=== PATIENT | female | born 1960 | race Caucasian/White ===

== ENCOUNTER 2016-12-11 01:05 | Emergency (ER) | payer OTHER, SELFPAY ==
[~2016-12-11 01:05] MED LIST: BENA25CA2 PO; DYAZ37.5 PO; NICO2GUM62 PO; PRED1SUS OP; RISP0.5T21 PO; RISP1TAB42 PO; RISP3TAB20 PO; RISP3TAB3 PO; TOBRSUS41 OP; TRAZ25TA PO
[2016-12-11] MEDS ORDERED: BENA25CA4 PO (01:41)
[2016-12-11 02:12] LABS: MEAN CORPUSCULAR HEMOGLOBIN 31.2 pg (27.0-33.0); MEAN CORPUSCULAR HGB CONC 33.9 g/dl (32.0-36.5); MEAN CORPUSCULAR VOLUME 91.9 fl (80.0-96.0); RED CELL DISTRIBUTION WIDTH 12.3 % (11.5-14.5)
[2016-12-11 02:38] LABS: METHADONE URINE NEGATIVE (NEGATIVE)
[2016-12-11 02:43] LABS: ALBUMIN 4.2 GM/DL (3.2-5.2); ALBUMIN/GLOBULIN RATIO 1.31 (1.00-1.93); ALKALINE PHOSPHATASE 63 U/L (45-117); ALT/SGPT 22 U/L (12-78); ANION GAP 10 MEQ/L (8-16); AST/SGOT 21 U/L (15-37); BILIRUBIN,DIRECT 0.1 MG/DL (0.0-0.2); BILIRUBIN,TOTAL 0.3 MG/DL (0.2-1.0); BLOOD UREA NITROGEN 16 MG/DL (7-18); CALCIUM LEVEL 9.1 MG/DL (8.5-10.1); CARBON DIOXIDE LEVEL 26 MEQ/L (21-32); CHLORIDE LEVEL 103 MEQ/L (98-107); CREATININE FOR GFR 0.85 MG/DL (0.55-1.02); GLOMERULAR FILTRATION RATE > 60.0 (>51); GLUCOSE, FASTING 112 MG/DL (70-105); POTASSIUM SERUM 4.3 MEQ/L (3.5-5.1); SODIUM LEVEL 139 MEQ/L (136-145); TOTAL PROTEIN 7.4 GM/DL (6.4-8.2)
[2016-12-11 02:58] VITALS: BP 145/98
== END 2016-12-11 03:02 | disposition home or self-care (01) ==
LOC: M ED 01:05
DX: Z04.6 Encounter for general psychiatric examination, requested by authority (principal); F43.0 Acute stress reaction; I10 Essential (primary) hypertension; Z87.891 Personal history of nicotine dependence; Z79.899 Other long term (current) drug therapy; Z88.0 Allergy status to penicillin; Z88.8 Allergy status to other drugs, medicaments and biological substances
CPT/HCPCS: 36415; 80048; 80076; 80307; 84443; 85027; 99284; G0480

== ENCOUNTER 2017-04-04 22:07 | Inpatient (IN) | payer OTHER ==
[~2017-04-04] VITALS: Ht 162.6 cm; Wt 64.0 kg
[~2017-04-04 22:07] MED LIST changes: +BENA25CA4 PO
[2017-04-04] MEDS ORDERED: LORazepam 2 MG/ML VIAL (J2060) IM ONE (22:30)
[2017-04-04] MEDS ORDERED: HALOPERIDOL 5 MG/ML VIAL (J1630) IM ONE (22:30)
[2017-04-04] MEDS ORDERED: diphenhydrAMINE INJ 50MG/ML VIAL (J1200) IM ONE (22:30)
[2017-04-04 23:47] LABS: MEAN CORPUSCULAR HEMOGLOBIN 30.3 pg (27.0-33.0); MEAN CORPUSCULAR HGB CONC 33.1 g/dl (32.0-36.5); MEAN CORPUSCULAR VOLUME 91.5 fl (80.0-96.0); PLATELET COUNT, AUTOMATED 187 10^3/uL (150-450); RED CELL DISTRIBUTION WIDTH 12.9 % (11.5-14.5); WHITE BLOOD COUNT 12.2 10^3/uL (4.0-10.0)
[2017-04-05] VITALS (7 sets, daily range): BP systolic 117–150; BP diastolic 56–88
[2017-04-05 00:12] LABS: METHADONE URINE NEGATIVE (NEGATIVE)
[2017-04-05 00:27] LABS: ALBUMIN 3.7 GM/DL (3.2-5.2); ALBUMIN/GLOBULIN RATIO 1.23 (1.00-1.93); ALKALINE PHOSPHATASE 54 U/L (45-117); ALT/SGPT 25 U/L (12-78); ANION GAP 10 MEQ/L (8-16); AST/SGOT 16 U/L (7-37); BILIRUBIN,DIRECT < 0.1 MG/DL (0.0-0.2); BILIRUBIN,TOTAL 0.2 MG/DL (0.2-1.0); BLOOD UREA NITROGEN 14 MG/DL (7-18); CALCIUM LEVEL 8.8 MG/DL (8.5-10.1); CARBON DIOXIDE LEVEL 26 MEQ/L (21-32); CHLORIDE LEVEL 108 MEQ/L (98-107); CREATININE FOR GFR 1.01 MG/DL (0.55-1.02); GLOMERULAR FILTRATION RATE > 60.0 (>51); GLUCOSE, FASTING 95 MG/DL (70-105); POTASSIUM SERUM 3.6 MEQ/L (3.5-5.1); SODIUM LEVEL 144 MEQ/L (136-145); TOTAL PROTEIN 6.7 GM/DL (6.4-8.2)
[2017-04-05] MEDS ORDERED: PATIENT COMMENT (02:11)
[2017-04-05] MEDS ORDERED: ACETAMINOPHEN TAB 650MG DOSE (2X325MG) PO PRN (07:45)
[2017-04-05] MEDS ORDERED: OLANZapine 10 MG TAB PO PRN (07:45)
[2017-04-05] MEDS ORDERED: traZODone 50 MG TAB PO PRN (07:45)
[2017-04-05] MEDS ORDERED: MOM 30ML SUSPENSION UDC PO PRN (07:45)
[2017-04-05] MEDS ORDERED: MAALOX 30 ML SUSP *UDC PO PRN (07:45)
[2017-04-05] MEDS: NICOTINE POLACRILEX 2 MG GUM PO PRN ×2 (08:50→17:22)
--- NOTE | 2017-04-05 09:30 | HPEPDOC ---
[facility] Medical History & Physical Date of Admission Apr 04, 2017 History and Physical PCP: Dr David MOORE Oncologist: Dr Michael Sanchez [facility] ATTENDING: Dr. Bernard Nielson HPI: 55yoF admitted to [facility] for Unspecified depressive disorder, being medically examined today. Pt received physical and chemical restraint at 22:35 04/04/17 after becoming aggressive and physically threatening with staff. Pt is not able to provide history or participate with exam at this time. Per records Pt recently non compliant with medications. History is taken from the chart. PMHx: Schizophrenia/Schizoaffective disorder Psychosis Hypertension Breast cancer- status post radiation treatment, Following with Dr Sanchez OncologyKonrad MOORE PSHX: Left lumpectomy 04/19 Appendectomy Tonsillectomy Left breast cyst-benign SOCHX: Resides in: Grew up in [place], from [place]. Lives on [address] [facility] in [facility] [facility] in [place]. Marital Status: Kids: None Employment: Homemaker Tobacco use: Denies ETOH: One to 2 times per week 3 drinks Illicit Drugs: Marijuana "occasionally" IV Drug Use: Denies Tattoos done unprofessionally: Denies FAMHX: Mother: Alive, living in [facility], not in contact Father: Alive, living in [place], not in contact Siblings: Alive, half-brother and half-sister, healthy Children: None Unexpected deaths due to medical reasons: None. ROS: Pt is postmenopausal. Pt is not able to provide any additional history at this time. PE: Pt is not able to particiapte with exam at this time. EKG: Pending. A&P: 55yoF admitted to [facility] for Unspecified psychosis 1. Psych. Plan per Psychiatry. Obtain baseline EKG to assure the safety of psychiatric medications as they can prolong the QT interval. 2. H/O Breast Cancer s/p surgery and Radiation treatment- Following with Dr Sharon MOORE. 3. Leukocytosis. Patient is afebrile. Possibly stress response. Recheck CBC in a.m. 4. H/O Hypertension. No medications as an outpatient. BP 117-135 systolic. Monitor. 5. Substance use. Per psychiatry. 6. Follow up with PCP at discharge. 7. Staff member Arben assisted in attempting H&P. Vital Signs Vital Signs Date Time Temp Pulse Resp B/P (MAP) Pulse Ox O2 Delivery O2 Flow Rate FiO2 04/05/17 06:37 97.8 65 20 135/80 (98) 04/05/17 04:08 96 Room Air Laboratory Data Labs 24H Laboratory Tests 2 04/04/17 23:36: Nucleated Red Blood Cells % (auto) 0.0, Anion Gap 10, Glomerular Filtration Rate > 60.0, Calcium Level 8.8, Aspartate Amino Transf (AST/SGOT) 16, Alanine Aminotransferase (ALT/SGPT) 25, Alkaline Phosphatase 54, Total Bilirubin 0.2, Direct Bilirubin < 0.1, Total Protein 6.7, Albumin 3.7, Albumin/Globulin Ratio 1.23, Thyroid Stimulating Hormone (TSH) 1.770, Salicylates Level 3.4L, Acetaminophen Level < 2.0L, Ethyl Alcohol Level 0.060H 04/04/17 23:43: Urine Amphetamines Screen NEGATIVE, Urine Benzodiazepines Screen NEGATIVE, Urine Opiates Screen NEGATIVE, Urine Methadone Screen NEGATIVE, Urine Barbiturates Screen NEGATIVE, Urine Phencyclidine Screen NEGATIVE, Urine Cocaine Metabolite Screen NEGATIVE, Urine Cannabinoids Screen NEGATIVE CBC/BMP Laboratory Tests 04/04/17 23:36 Red Blood Count 4.23, Mean Corpuscular Volume 91.5, Mean Corpuscular Hemoglobin 30.3, Mean Corpuscular Hemoglobin Concent 33.1, Red Cell Distribution Width 12.9 Home Medications Miscellaneous Medications [Patient Comment] PATIENT UNRESPONSIVE DUE TO COCKTAIL GIVEN IN ER. HAS NOT HAD ANYTHING FILLED AT HER PHARMACY SINCE AUGUST. SUGGESTED THAT PATIENT MIGHT NOT BE COMPLAINT WITH HER MEDICATIONS. Allergies Coded Allergies: Ibuprofen (Verified Allergy, Unknown, SWOLLEN FACE, 10/26/15) Penicillins (Verified Allergy, Unknown, RASH, 10/26/15) Estefani Vicente Apr 05, 2017 09:30
[2017-04-05] MEDS ORDERED: risperiDONE 3 MG TAB PO ONE (10:00)
[2017-04-05] MEDS ORDERED: LORazepam 2 MG TAB PO ONE (10:00)
[2017-04-05] MEDS ORDERED: LORazepam 2 MG/ML VIAL (J2060) IM STA (10:06)
[2017-04-05] MEDS ORDERED: HALOPERIDOL 5 MG/ML VIAL (J1630) IM STA (10:06)
--- NOTE | 2017-04-05 17:27 | ECGEPIP ---
Stationary ECG Study [facility] Test Date: 2017-04-05 Pat Name: CAMILO HO Department: Room: [place] [address] Gender: F Security Nurse: NAYELI : 1960 Requested By: Estefani Vicente Order Number: [id number] Reading MD: Bernard Nielson Measurements Intervals [place] Rate: 69 P: 34 MI: 148 QRS: 16 QRSD: 104 T: 65 QT: 410 QTc: 442 Interpretive Statements SINUS RHYTHM NONSPECIFIC T-WAVE ABNORMALITY Electronically Signed On 04-05-2017 17:26:40 EDT by Bernard Nielson
--- NOTE | 2017-04-05 18:19 | MHHPE ---
DATE OF ADMISSION: 04/05/2017 LEGAL STATUS AT ADMISSION: 939 legal status. CHIEF COMPLAINT: "I do not need to be here". HISTORY OF PRESENT ILLNESS: 56-year-old female with history of schizoaffective disorder admitted to our unit on a 939 legal status. According to the record her spouse called the police as patient has been decompensating. Has not been taking her medications. He has been recently agitated and aggressive. Patient has bene delusional making reference to Nazi and JUAN. Patient came to the emergency department (ED) quite uncooperative and aggressive with the police as well. Patient was unable to give any history. She was acutely psychotic and had to medicated. During the interview today, patient continues psychotic, agitated, delusional, manic, with pressured speech, flight of ideas, and paranoia. Patient is unable to cooperate with mental status and significant information is gathered from her last admission on our unit. Patient has no insight and her judgment is very poor. PAST MEDICAL HISTORY: According to the chart patient status-post left mastectomy. Reports history of radiation therapy and that she refused chemotherapy in the past. Also reported back pain. PSYCHIATRIC HISTORY: Patient has three other hospitalizations in our unit with diagnosis of schizoaffective disorder. She has a history of noncompliance with medications. Has been in Risperdal 3 mg at bedtime, apparently with good results if the patient keeps taking the medication. FAMILY HISTORY: According to the chart she has a psychiatric family history but is confusing since she denied this during her last admission. SOCIAL HISTORY: Record show the patient was born in [place]. She lived most of her life in [place] but the above is unclear. She is . Reports marital problems. No other information could be gathered from the patient or the chart. SUBSTANCE ABUSE HISTORY: It is reported that she drinks occasionally. Denied having any substance abuse problems. Prior records show that she admitted to drink alcohol on a daily basis but again this information needs to confirmed. LEGAL HISTORY: Unremarkable. PSYCHIATRIC REVIEW OF SYSTEM: Patient is unable to cooperate, is agitated, restless with flight of ideas and paranoia. MENTAL STATUS EXAMINATION: Patient is unable to cooperate with formal mental status. She is dressed in [facility] and cooperative. Speech is pressured, fast. Has poor eye contact. Mood is expansive, manic. Effect is inappropriate and labile. Unable to test orientation, memory, attention and concentration. Patient has paranoid delusions. Appears to react to internal stimuli. Patients judgment and insight are very poor. PHYSICAL EXAMINATION: As per physician assistant media buyer. LABS AT ADMISSION: Her CBC showed white blood cells of 12.2, rest unremarkable. CMP is unremarkable. TSH within normal limits. Blood alcohol level is 0.6. Urine drug screen is negative. DIAGNOSES: Luquillo I: Schizoaffective disorder, rule out bipolar disorder, manic episode. Luquillo II: Deferred. Luquillo III: Nonacute. INITIAL TREATMENT PLAN: Patient was admitted on a 939 legal status. Complete history was obtained with permission. Family will be contacted and the and database will be expanded. Her medication regimen will be reviewed and changed accordingly. She will be provided with a protective environment. She will be treated with individual, group and milieu therapies. He will also receive supportive psychoeducation. Discharge planning will commence immediately. Length of stay will be between 7 and 10 days. Outpatient followup will be strongly recommended. The treatment plan will focus initially on christina, altered thoughts, altered perception, risk for suicide, risk to harm others.
[2017-04-05] MEDS: risperiDONE 3 MG TAB PO SCH (21:00)
[2017-04-05] MEDS: QUEtiapine FUMARATE 100 MG TAB PO SCH (21:00)
[2017-04-06 06:35] VITALS: BP 129/94
[2017-04-06 06:42] LABS: MEAN CORPUSCULAR HEMOGLOBIN 29.4 pg (27.0-33.0); MEAN CORPUSCULAR HGB CONC 32.4 g/dl (32.0-36.5); MEAN CORPUSCULAR VOLUME 90.7 fl (80.0-96.0); PLATELET COUNT, AUTOMATED 193 10^3/uL (150-450); RED CELL DISTRIBUTION WIDTH 12.7 % (11.5-14.5); WHITE BLOOD COUNT 6.1 10^3/uL (4.0-10.0)
[2017-04-06] MEDS: NICOTINE POLACRILEX 2 MG GUM PO PRN ×5 (06:43→19:54)
[2017-04-06] MEDS ORDERED: HALOPERIDOL 5 MG TAB PO PRN (14:15)
[2017-04-06] MEDS ORDERED: LORazepam 2 MG TAB PO PRN (14:15)
--- NOTE | 2017-04-06 16:49 | MHIPN ---
DATE: 04/06/2017 HISTORY: This is a 56-year-old female with a history of schizoaffective disorder, admitted to our unit with symptoms compatible with full manic episodes. The patient was delusional, talking about the Nazis and JUAN. The patient was uncooperative with pressured speech and flight of ideas. MEDICATIONS: The patient is noncompliant with Risperdal 3 mg by mouth at night or Seroquel 100 mg by mouth at night. SUBJECTIVE: "Are you related to a company named [employer]?" OBJECTIVE: The patient continues manic, expansive, irritable, angry, impulsive, at times agitated and needed to have frequent redirection. The patient has no insight on her psychiatric illness. She is asking to be discharged and is not willing to take medications. MENTAL STATUS EXAMINATION: The patient is dressed in [facility]. The patient is uncooperative with poor eye contact, unwilling to cooperate with formal interview or mental status examination. Mood is manic. Affect is expansive. The patient has paranoid delusions and appears to react to internal stimuli. Unable to test attention and concentration or memory. The patient has very little insight and judgment. ASSESSMENT: 1. Schizoaffective disorder, manic episode. PLAN: 1. Continue offering Risperdal and Seroquel and monitor. Continue close observation.
[2017-04-06 17:30] VITALS: BP 193/104
[2017-04-06] MEDS ORDERED: LORazepam 2 MG/ML VIAL (J2060) IM ONE (17:30)
[2017-04-06] MEDS ORDERED: HALOPERIDOL 5 MG/ML VIAL (J1630) IM ONE (17:30)
[2017-04-06 17:45] VITALS: BP 152/96
[2017-04-06 18:00] VITALS: BP_SYST 168; BP_SYST 172; BP_DIAS 92
[2017-04-06 18:15] VITALS: BP 158/92
[2017-04-06] MEDS ORDERED: HALOPERIDOL 5 MG/ML VIAL (J1630) IM STA (19:29)
[2017-04-06] MEDS ORDERED: LORazepam 2 MG/ML VIAL (J2060) IM STA (19:29)
[2017-04-06] MEDS: QUEtiapine FUMARATE 100 MG TAB PO SCH (21:00)
[2017-04-06] MEDS: risperiDONE 3 MG TAB PO SCH (21:00)
[2017-04-07 06:46] VITALS: BP 118/72
[2017-04-07] MEDS: NICOTINE POLACRILEX 2 MG GUM PO PRN ×4 (07:03→17:18)
[2017-04-07] MEDS ORDERED: HALOPERIDOL 5 MG/ML VIAL (J1630) IM STA (08:58)
[2017-04-07] MEDS ORDERED: LORazepam 2 MG/ML VIAL (J2060) IM STA (08:58)
[2017-04-07] MEDS: risperiDONE 3 MG TAB PO SCH (08:59)
[2017-04-07 09:17] VITALS: BP 164/98
--- NOTE | 2017-04-07 16:40 | MHIPN ---
DATE OF SERVICE: 04/07/2017 HISTORY: 56-year-old female with history of schizoaffective disorder, admitted to our unit in full manic episode. Patient is delusional, talking about Nazis and JUAN, uncooperative, pressured speech, flight of ideas, irritability and impulsivity. MEDICATION: Patient is noncompliant with treatment. She has prescribed Risperdal 3 mg by mouth daily and Seroquel 100 mg by mouth nightly. SUBJECTIVE: "I need to go home now." OBJECTIVE: Patient continues manic, expansive, irritable, angry, impulsive, agitated and needs frequent redirection. Patient had to be medicated early this morning. She has no insight. MENTAL STATUS EXAMINATION: Patient dressed in [facility], uncooperative, unwilling to cooperate with formal interview or mental status examination. Continues manic, expansive, paranoid, delusional. At times, appeared to react to internal stimuli. Unable to test attention, concentration and memory. No insight and judgment. ASSESSMENT: Schizoaffective disorder, manic episode. PLAN: Continue offering Risperdal and Seroquel. Continue close monitorization and redirection.
[2017-04-07 18:00] VITALS: BP 135/76
[2017-04-07] MEDS: QUEtiapine FUMARATE 100 MG TAB PO SCH (21:00)
[2017-04-08 06:46] VITALS: BP 135/83
[2017-04-08] MEDS: NICOTINE POLACRILEX 2 MG GUM PO PRN ×8 (07:47→22:22)
[2017-04-08] MEDS: risperiDONE 3 MG TAB PO SCH (08:05)
[2017-04-08 18:00] VITALS: BP 136/80
[2017-04-08] MEDS: QUEtiapine FUMARATE 100 MG TAB PO SCH (21:00)
[2017-04-09] MEDS: NICOTINE POLACRILEX 2 MG GUM PO PRN ×11 (00:58→22:09)
[2017-04-09 07:23] VITALS: BP 135/91
[2017-04-09] MEDS: risperiDONE 3 MG TAB PO SCH (08:43)
[2017-04-09 18:48] VITALS: BP 134/78
[2017-04-09] MEDS: QUEtiapine FUMARATE 100 MG TAB PO SCH (21:00)
[2017-04-10] MEDS: NICOTINE POLACRILEX 2 MG GUM PO PRN ×8 (01:25→16:00)
[2017-04-10 07:14] VITALS: BP 136/90
[2017-04-10] MEDS: risperiDONE 3 MG TAB PO SCH ×2 (08:56→09:18)
--- NOTE | 2017-04-10 10:11 | MHIPN ---
DATE OF SERVICE: 04/08/2017 The patient today remains quite delusional. She is talking nonstop about the fact that she says that she saw me in [place]. She continues not to want to take any medications. MENTAL STATUS EXAMINATION: She is alert and oriented. Eye contact is good. She has flight of ideas. There is no suicidal or homicidal ideation. She says her mood is fine. She is delusional. Concentration is poor. Insight and judgment is poor. DIAGNOSIS: Schizoaffective disorder, manic episode. TREATMENT PLAN: At this point, the patient remains acutely psychotic and kin a manic state. She has no insight. She continues to refuse to take medications.
[2017-04-10] MEDS ORDERED: RISP3TAB20 PO (17:06)
--- NOTE | 2017-04-11 13:35 | MHDS ---
DATE OF ADMISSION: 04/05/2017 DATE OF DISCHARGE: 04/10/2017 LEGAL STATUS AT ADMISSION: 939 legal status. HISTORY OF PRESENT ILLNESS: A 56-year-old female with history of schizoaffective disorder, admitted to our unit on a 939 legal status. According to the record, her spouse called the police and told them that the patient has been decompensated. She has not been taking medications. She has been aggressive, agitated, delusional, talking about Nazis and JUAN. She was uncooperative and aggressive at arrival to the emergency room (ER). She was unable/unwilling to give information or cooperate with history taking and mental status examination. She had to be medicated at arrival to the emergency department (ED). In our unit, the patient continued to be psychotic, agitated, delusional, and symptoms are compatible with a manic episode with pressured speech, flight of ideas, paranoia. Her Insight and judgment were very poor. LABORATORIES AT ADMISSION: CBC showed white blood cell of 12.2, the rest within normal limits. CMP was unremarkable. TSH within normal limits. Urine drug screen was negative. Blood alcohol level was 0.06. HOSPITAL COURSE: After the first evaluation, the patient was placed on Risperdal 3 mg by mouth daily; however, she did not want to take medications. She had to be medicated for agitation. She was every intrusive and aggressive. The patient had to take Haldol 5 mg and Ativan 2 mg several times during this admission to control her agitation. On 04/10, the patient has improved significantly, although she remains with limited insight as far as her psychiatric illness. We had a meeting with her , meeting/event planner, the patient and myself, in which she was agreeable to continue taking the medication if she is discharged home, and followup with a local psychiatrist as outpatient. At this point, the patient no longer meets criteria for involuntary hospitalization. She does not have auditory or visual hallucinations or delusions. She is denying suicidal or homicidal ideations. Therefore, can be management on outpatient basis. MEDICATIONS AT DISCHARGE: Risperdal 3 mg by mouth daily, which is the medication she was discharged last time from our unit and was stable, but she has not followed up. DISCHARGE DIAGNOSES: AXIS I: Bipolar disorder, manic episode. AXIS II: Deferred. AXIS III: None acute. MENTAL STATUS EXAMINATION AT DISCHARGE: The patient is dressed in [facility]. The patient is cooperative. Speech is somewhat fast but no longer pressured. Has fair eye contact. Mood is anxious, somewhat elated, but significantly improved. Affect is appropriate with mood. The patient is oriented to time, place, person and situation. Maintain attention and concentration fairly. Instant recall, recent and remote memory are fair. The patient does not have auditory or visual hallucinations. The patient does not have paranoid, persecutory, somatic, grandiose or christian delusions. The patient is denying suicidal or homicidal ideations. Judgment is fair. Insight is limited as far as her psychiatric illness. INSTRUCTIONS TO THE PATIENT: The patient is to continue taking her medication as prescribed and followup appointments. She is advised to maintain absolute sobriety from drugs and alcohol. The patient has scheduled appointment for medication management, individual psychotherapy and primary care physician.
--- NOTE | 2017-04-18 17:04 | IPN ---
DATE: 04/09/2017 The patient remains quite manic and delusional. She is alert and oriented times three. Eye contact is good. Speech is pressured. She has flight of ideas. She continues with ongoing delusions. She says her mood is fine. Affect is more consistent with christina. She denies any suicidal or homicidal ideas. Concentration is poor. Insight and judgment is poor. DIAGNOSIS: Schizoaffective disorder and manic. TREATMENT PLAN: At this point, the patient remains acutely psychotic and in a manic state. She has no insight about her illness. She continues to refuse medications.
== END 2017-04-10 17:50 | disposition home or self-care (01) | DRG 885 ==
LOC: M ED 22:07 → OBSVTOIN 04-05 02:24 → M ED INP 04-05 02:24 → M PSY 04-05 03:35 → UNDODISOB 04-10 17:50
PROVIDERS: ADMIT Psychiatry & Neurology Psychiatry; ATTEND Psychiatry & Neurology Psychiatry
DX: F31.9 Bipolar disorder, unspecified (principal); I10 Essential (primary) hypertension; D72.829 Elevated white blood cell count, unspecified; Z85.3 Personal history of malignant neoplasm of breast; Z88.0 Allergy status to penicillin; Z88.6 Allergy status to analgesic agent

== ENCOUNTER → 2018-06-22 | Outpatient (CLI) | payer OTHER ==
[~2018-06-22] MED LIST changes: +PATIENT COMMENT; -PRED1SUS OP; +PRED1SUS2 OP
--- NOTE | 2018-06-25 15:39 | DEXA ---
AP SPINE L1 - L4 1.219 0.2 1.1 LT FEMUR TOTAL 0.997 -0.1 0.7 LT NECK 1.052 0.1 1.2 RT FEMUR TOTAL 0.989 -0.2 0.6 RT NECK 0.993 -0.3 0.8 TOTAL BODY TOTAL OTHER COMMENTS: Normal bone densitometry of the spine and hips. FOLLOW-UP: Recommendation for the next bone density exam: 5 years. MEGHAN
== END ==
LOC: M WHC 09:51
PROVIDERS: ATTEND Internal Medicine Medical Oncology
DX: C50.812 Malignant neoplasm of overlapping sites of left female breast (principal); Z78.0 Asymptomatic menopausal state

== ENCOUNTER 2018-12-28 09:39 | Day surgery (SDC) | payer OTHER ==
[~2018-12-28] VITALS: Ht 162.6 cm; Wt 59.8 kg
[~2018-12-28 09:39] MED LIST changes: +CALC-333 PO; +DIVA250T67 PO; +HALO1TA PO; +HALO5TA PO; +LETR2.5T2 PO; +NS 1,000 ML IV ONE; +TRAZ1TAB6 PO; -TRAZ25TA PO; +TRIA37.53 PO; +VITA500T PO
[2018-12-28] MEDS ORDERED: LIDOCAINE 2% INJ 100 MG/5 ML SDV (FOR ANES.) As Ordered ONE (10:50)
[2018-12-28] MEDS ORDERED: PROPOFOL 500 MG/50 ML VIAL As Ordered ONE (10:50)
[2018-12-28 11:35] VITALS: BP 120/89
--- NOTE | 2018-12-28 11:38 | ROOR ---
Patient Name: Yenny Serna Procedure Date: 12/28/2018 10:41 AM Date of : 1960 Age: 58 Room: [facility] Gender: Female Note Status: Finalized Procedure: Total Colonoscopy to Cecum + ileoscopy Indications: Screening for colorectal malignant neoplasm Providers: Alphonso Acuna MD Referring MD: David Maldonado Md Requesting Provider: Medicines: Monitored Anesthesia Care Complications: No immediate complications. Procedure: Pre-Anesthesia Assessment: - The heart rate, respiratory rate, oxygen saturations, blood pressure, adequacy of pulmonary ventilation, and response to care were monitored throughout the procedure. The Colonoscope was introduced through the anus and advanced to the cecum, identified by appendiceal orifice and ileocecal valve. The colonoscopy was performed without difficulty. The patient tolerated the procedure well. The quality of the bowel preparation was excellent. Findings: The perianal and digital rectal examinations were normal. Non-bleeding internal hemorrhoids were found during retroflexion. The hemorrhoids were small and Grade I (internal hemorrhoids that do not prolapse). Multiple small and large-mouthed diverticula were found in the recto-sigmoid colon, sigmoid colon and descending colon. The exam was otherwise without abnormality on direct and retroflexion views. The terminal ileum appeared normal. Impression: - Non-bleeding internal hemorrhoids. - Diverticulosis in the recto-sigmoid colon, in the sigmoid colon and in the descending colon. - The examination was otherwise normal on direct and retroflexion views. - The examined portion of the ileum was normal. - No specimens collected. - The exam was otherwise normal to the cecum. Recommendation: - Patient has a contact number available for emergencies. The signs and symptoms of potential delayed complications were discussed with the patient. Return to normal activities tomorrow. Written discharge instructions were provided to the patient. - High fiber diet. - Discharge patient to home. - Continue present medications. - Repeat colonoscopy in 10 years for screening purposes. - Return to referring physician. - The findings and recommendations were discussed with the patient's family. Alphonso Acuna MD Alphonso Acuna MD 12/28/2018 11:37:52 AM Electronically signed by Alphonso Acuna MD Number of Addenda: 0 Note Initiated On: 12/28/2018 10:41 AM Estimated Blood Loss: Estimated blood loss: none.
== END 2018-12-28 11:45 | disposition home or self-care (01) ==
LOC: M OPP 09:39
PROVIDERS: ATTEND Internal Medicine Gastroenterology
DX: Z12.11 Encounter for screening for malignant neoplasm of colon (principal); K64.0 First degree hemorrhoids; K57.30 Diverticulosis of large intestine without perforation or abscess without bleeding; I10 Essential (primary) hypertension; M19.90 Unspecified osteoarthritis, unspecified site; F32.9 Major depressive disorder, single episode, unspecified; F41.9 Anxiety disorder, unspecified; Z78.0 Asymptomatic menopausal state; R56.9 Unspecified convulsions; Z92.3 Personal history of irradiation; R06.83 Snoring; Z85.3 Personal history of malignant neoplasm of breast; Z88.0 Allergy status to penicillin; Z79.899 Other long term (current) drug therapy

== ENCOUNTER 2020-12-02 22:24 | Emergency (ER) | payer OTHER ==
[~2020-12-02] VITALS: Ht 162.6 cm; Wt 55.5 kg
[~2020-12-02 22:24] MED LIST changes: +NICO-13 PO; -NICO2GUM62 PO; -NS 1,000 ML IV ONE; +RISP-10 PO; -RISP3TAB3 PO; +VITA-243 PO; -VITA500T PO
[2020-12-02 23:14] LABS: HEMATOCRIT 41.6 % (36.0-47.0); MEAN CORPUSCULAR HGB CONC 33.7 g/dl (32.0-36.5); PLATELET COUNT, AUTOMATED 272 10^3/uL (150-450); RED BLOOD COUNT 4.52 10^6/uL (4.00-5.40); WHITE BLOOD COUNT 9.1 10^3/uL (4.0-10.0)
[2020-12-02 23:54] LABS: AMPHETAMINES LEVEL URINE NEGATIVE (NEGATIVE); BARBITURATES URINE NEGATIVE (NEGATIVE); BENZODIAZEPINES URINE NEGATIVE (NEGATIVE); CANNABINOIDS URINE NEGATIVE (NEGATIVE); COCAINE METABOLITE URINE NEGATIVE (NEGATIVE); METHADONE URINE NEGATIVE (NEGATIVE); OPIATES URINE NEGATIVE (NEGATIVE); PHENCYCLIDINE URINE NEGATIVE (NEGATIVE)
[2020-12-03 00:04] LABS: ACETAMINOPHEN LEVEL < 2.0 UG/ML (10.0-30.0); ALBUMIN 4.1 GM/DL (3.2-5.2); ALT/SGPT 20 U/L (12-78); BILIRUBIN,DIRECT 0.1 MG/DL (0.0-0.2); BILIRUBIN,TOTAL 0.4 MG/DL (0.2-1.0); BLOOD UREA NITROGEN 9 MG/DL (7-18); CALCIUM LEVEL 9.1 MG/DL (8.5-10.1); CARBON DIOXIDE LEVEL 27 MEQ/L (21-32); CHLORIDE LEVEL 104 MEQ/L (98-107); CREATININE FOR GFR 0.63 MG/DL (0.55-1.30); ETHYL ALCOHOL (ETHANOL) 0.123 % (0.000-0.010); GLOMERULAR FILTRATION RATE > 60.0 (>51); GLUCOSE, FASTING 152 MG/DL (70-100); POTASSIUM SERUM 3.8 MEQ/L (3.5-5.1); SALICYLATE LEVEL < 1.7 MG/DL (5.0-30.0); SODIUM LEVEL 138 MEQ/L (136-145); TOTAL PROTEIN 7.1 GM/DL (6.4-8.2)
[2020-12-03] MEDS ORDERED: ACETAMINOPHEN TAB 650MG DOSE (2X325MG) PO ONE (00:35)
[2020-12-03] MEDS ORDERED: LORazepam 2 MG TAB PO ONE (04:10)
[2020-12-03 05:07] LABS: RSV AMPLIFICATION NEGATIVE (NEGATIVE)
[2020-12-03] MEDS ORDERED: haloperidoL 1 MG TAB PO ONE (10:50)
[2020-12-03] MEDS ORDERED: NICOTINE 7 MG/24 HR TRANSDERMAL TD ONE (10:50)
[2020-12-03] MEDS ORDERED: LETROZOLE 2.5 MG TAB PO ONE (10:50)
[2020-12-03] MEDS: DYAZIDE 37.5/25 CAP (TRIAM/HCTZ) PO SCH (11:46)
[2020-12-03] MEDS ORDERED: IRBE150T7 PO (16:09)
[2020-12-03] MEDS ORDERED: IRBESARTAN 150MG TAB PO ONE (16:10)
--- NOTE | 2020-12-03 18:04 | ECGEPIP ---
[facility] - ED Test Date: 2020-12-03 Pat Name: CAMILO HO Department: Room: - Gender: Female Lesson Instructor: MARLON : 1960 Requested By: Dell Juan Order Number: [id number] Reading MD: Angella Stallworth Measurements Intervals [place] Rate: 96 P: 47 MO: 124 QRS: 40 QRSD: 84 T: 37 QT: 372 QTc: 469 Interpretive Statements Normal sinus rhythm NSTTW abnormalities increased rate 04/05/17 Electronically Signed on 12-03-2020 18:04:46 EDT by Angella Stallworth
[2020-12-03] MEDS ORDERED: haloperidoL 5 MG TAB PO STA (19:45)
[2020-12-04] MEDS: DYAZIDE 37.5/25 CAP (TRIAM/HCTZ) PO SCH (11:07)
[2020-12-04 11:48] VITALS: BP 160/90
== END 2020-12-04 11:54 ==
LOC: M ED 22:24
DX: F23 Brief psychotic disorder (principal); F17.200 Nicotine dependence, unspecified, uncomplicated; Z79.899 Other long term (current) drug therapy; Z88.0 Allergy status to penicillin; Z88.6 Allergy status to analgesic agent

== ENCOUNTER → 2021-11-09 | Outpatient (REF) | payer OTHER ==
[~2021-11-09] MED LIST changes: -HALO1TA PO; +HALO1TAB PO; -HALO5TA PO; +HALO5TAB33 PO; +IRBE150T7 PO; -TRIA37.53 PO; +TRIA37.577 PO
[2021-11-09 17:02] LABS: GLOMERULAR FILTRATION RATE > 60.0 (>45)
== END ==
LOC: M LABDRAWC 15:31
PROVIDERS: ATTEND Radiology Diagnostic Radiology
DX: Z01.812 Encounter for preprocedural laboratory examination (principal)